=== PATIENT | female | born 1995 | race Caucasian/White ===

== ENCOUNTER 2017-01-25 12:22 | Day surgery (SDC) | payer OTHER ==
[2017-01-22 17:01] VITALS: BMI 21.6
[2017-01-25] VITALS (10 sets, daily range): BP systolic 88–116; BP diastolic 40–73; PULSE 72–84; RESP 14–26; Ht 163.8 cm; Wt 58.0 kg
[~2017-01-25] VITALS: Ht 163.8 cm; Wt 58.0 kg
[2017-01-25 13:17] LABS: ADD SCAN DIFF NO
[2017-01-25 13:21] LABS: BASOPHILS % 0.5 % (0.0-2.0); EOSINOPHILS # 0.1 10^3/ul (0.0-0.5); EOSINOPHILS % 0.9 % (0.0-7.0); HEMATOCRIT 37.1 % (37.0-47.0); HEMOGLOBIN 12.6 g/dl (12.0-16.0); LYMPHOCYTES # 2.1 10^3/ul (0.8-2.9); LYMPHOCYTES % 33.2 % (15.0-51.0); MEAN CORPUSCULAR HEMOGLOBIN 29.5 pg (29.0-33.0); MEAN CORPUSCULAR VOLUME 86.9 fl (82.0-101.0); MEAN PLATELET VOLUME 9.7 fl (7.4-10.4); MONOCYTE # 0.6 10^3/ul (0.3-0.9); MONOCYTES % 9.3 % (0.0-11.0); NEUTROPHIL # 3.6 10^3/ul (1.6-7.5); NEUTROPHILS % 55.5 % (39.0-77.0); PLATELET COUNT 222 10^3/UL (140-415); RED BLOOD COUNT 4.27 10^6/ul (4.20-5.40); RED CELL DISTRIBUTION WIDTH 12.6 % (11.5-14.5); WHITE BLOOD COUNT 6.5 10^3/ul (4.8-10.8)
[2017-01-25 13:30] LABS: INR 1.02; PARTIAL THROMBOPLASTIN TIME 29.1 Sec (25.0-35.0); PROTIME 13.4 Sec (12.2-14.2)
[2017-01-25 13:31] LABS: POTASSIUM 3.5 mmol/L (3.5-5.1)
[2017-01-25 13:33] LABS: CREATININE 0.51 mg/dl (0.44-1.00)
[2017-01-25 13:34] LABS: CALCIUM 9.8 mg/dl (8.4-10.2)
[2017-01-25] MEDS ORDERED: SOD CHLORIDE 0.9% 1,000 ML IV SCH (14:30)
[2017-01-25] MEDS ORDERED: CEFAZOLIN 2 GM/50 ML (PMX) 50 ML IVPB SCH (14:30)
[2017-01-25] MEDS ORDERED: BUPIVACAINE 0.25% (MPF) 10 ML 10 ML VIAL ONE (15:20)
[2017-01-25] MEDS ORDERED: METOCLOPRAMIDE 10 MG INJ IV PRN (15:30)
[2017-01-25] MEDS ORDERED: ONDANSETRON 4 MG INJ IV PRN (15:30)
[2017-01-25] MEDS ORDERED: MIDAZOLAM 1 MG/ML 2 ML INJ IV PRN (15:30)
[2017-01-25] MEDS ORDERED: HYDROmorphONE (0.2 MG/ML) 10ML SYG IV PRN ×2 (15:30)
[2017-01-25] MEDS ORDERED: LABETALOL HCL 20MG INJ IV PRN (15:30)
[2017-01-25] MEDS ORDERED: EPHEDrine SULFATE 50 MG/5 ML SYG IV PRN (15:30)
[2017-01-25] MEDS ORDERED: FENTAnyl 50 MCG/ML VIAL IV PRN ×2 (15:30)
[2017-01-25] MEDS ORDERED: DIPHENHYDRAMINE 50 MG INJ IV PRN (15:30)
[2017-01-25] MEDS ORDERED: hydrALAzine 20 MG INJ IV PRN (15:30)
[2017-01-25] MEDS ORDERED: MEPERIDINE 25 MG INJ IV PRN (15:30)
[2017-01-25] MEDS ORDERED: SUCCINYLCHOLINE CHLORIDE 100 MG/5 ML SYG IV ONE (15:36)
[2017-01-25] MEDS ORDERED: ROCURONIUM 50 MG INJ ONE (15:36)
[2017-01-25] MEDS ORDERED: PROPOFOL 20 ML ONE (15:36)
[2017-01-25] MEDS ORDERED: LIDOCAINE 2% (SDV) 5 ML INJ ONE (15:36)
[2017-01-25] MEDS ORDERED: GLYCOPYRROLATE 0.4 MG INJ ONE (15:36)
[2017-01-25] MEDS ORDERED: ONDANSETRON 4 MG INJ ONE (15:39)
[2017-01-25] MEDS ORDERED: CEFAZOLIN 1 GM INJ ONE (15:39)
[2017-01-25] MEDS ORDERED: METOCLOPRAMIDE 10 MG INJ ONE (15:39)
[2017-01-25] MEDS ORDERED: MEPERIDINE 100 MG INJ ONE (15:48)
[2017-01-25] MEDS ORDERED: HYDROCODONE/APAP (5/325) TAB PO ONE (16:30)
--- NOTE | 2017-01-25 19:25 | OPR ---
DATE OF OPERATION: 01/25/2017 INDICATION: This is a 21-year-old female with hemorrhoids. She requests surgical excision. Risks, alternatives, benefits, and personnel were discussed with the patient. The patient expressed under standing and consents to the operation. PREOPERATIVE DIAGNOSIS: Hemorrhoids. POSTOPERATIVE DIAGNOSIS: Hemorrhoids. OPERATION PERFORMED: 1. Internal, external complex hemorrhoidectomy x2. 2. Rigid proctoscopy. SURGEON: Orville Conde MD SPECIMEN: Left lateral and right posterior hemorrhoids. COMPLICATIONS: None. ANESTHESIA: General. PROCEDURE: The patient was taken to the OR and prepped and draped in usual sterile fashion. Surgic al timeout was performed. IV antibiotics were given. Attention was paid to the hemorrhoids. The l eft lateral internal hemorrhoidal artery was suture ligated with [id number] 3-0 Vicryl suture. The internal and external hemorrhoidal complex was excised with 15 blade and handheld LigaSure. Th e surgical site was hemostatic. This area was partially closed with a running 3-0 Vicryl. Attentio n was then paid to the right posterior column. This was addressed in a similar manner with a figure -of-eight 3-0 Vicryl suture ligature around the internal hemorrhoidal artery. The internal and exte rnal hemorrhoidal complex was excised with the 15 blade and handheld LigaSure. There was good hemos tasis. The incision was partially closed with running 3-0 Vicryl. Local anesthesia was injected. Dry dressings were applied. Dictated By: ORVILLE BLACKWOOD/TOYA Conf#: [id number] DID#: [id number]
== END 2017-01-25 17:52 | disposition home or self-care (01) ==
LOC: SDS 12:22
PROVIDERS: ATTEND Surgery
DX: K64.8 Other hemorrhoids (principal); K64.4 Residual hemorrhoidal skin tags
CPT/HCPCS: 46260; 80048; 84703; 85025; 85610; 85730; 88302; J0330; J0690; J2175; J2405; J2765; Z7512; Z7610

== ENCOUNTER 2017-02-01 18:10 | Inpatient (IN) | payer OTHER ==
[~2017-02-01] VITALS: Ht 165.1 cm; Wt 56.8 kg
[2017-02-01 18:47] VITALS: BP 122/64; RESP 16
[2017-02-01 19:21] VITALS: BP 117/75; RESP 18
[2017-02-01 20:23] VITALS: Ht 165.1 cm; Wt 56.8 kg
[2017-02-01 22:11] LABS: ADD SCAN DIFF NO
[2017-02-01 22:12] LABS: BASOPHILS % 0.3 % (0.0-2.0); EOSINOPHILS % 0.2 % (0.0-7.0); HEMATOCRIT 38.6 % (37.0-47.0); LYMPHOCYTES # 1.9 10^3/ul (0.8-2.9); LYMPHOCYTES % 16.4 % (15.0-51.0); MEAN CORPUSCULAR HEMOGLOBIN 28.9 pg (29.0-33.0); MEAN CORPUSCULAR HGB CONC 33.7 g/dl (32.0-37.0); MEAN CORPUSCULAR VOLUME 85.8 fl (82.0-101.0); MEAN PLATELET VOLUME 8.9 fl (7.4-10.4); MONOCYTE # 1.3 10^3/ul (0.3-0.9); MONOCYTES % 11.2 % (0.0-11.0); NEUTROPHIL # 8.1 10^3/ul (1.6-7.5); NEUTROPHILS % 70.5 % (39.0-77.0); PLATELET COUNT 213 10^3/UL (140-415); RED CELL DISTRIBUTION WIDTH 13.1 % (11.5-14.5); WHITE BLOOD COUNT 11.5 10^3/ul (4.8-10.8)
[2017-02-01 22:28] LABS: ALBUMIN 4.3 g/dl (3.3-4.9); ALBUMIN/GLOBULIN RATIO 1.26; BILIRUBIN,INDIRECT 0.7 mg/dl (0-1.1); BILIRUBIN,TOTAL 0.7 mg/dl (0.2-1.3); CALCIUM 9.5 mg/dl (8.4-10.2); CREATININE 0.46 mg/dl (0.44-1.00); POTASSIUM 3.5 mmol/L (3.5-5.1); TOTAL PROTEIN 7.7 g/dl (6.1-8.1)
[2017-02-01] MEDS: LACTATED RINGER'S 1,000 ML IV SCH (22:36)
[2017-02-01] MEDS: morphine 2 MG INJ IV PRN (22:36)
[2017-02-01] MEDS: CEFAZOLIN 2 GM/50 ML (PMX) 50 ML IVPB SCH (22:36)
--- NOTE | 2017-02-01 23:10 | CONS ---
DATE OF ADMISSION: 02/01/2017 DATE OF CONSULTATION: 02/01/2017 HISTORY OF PRESENT ILLNESS: This is a 21-year-old female who had hemorrhoidectomy approximately a w lower [place] ago. She presented to an outside ER with lower rectal bleed approximately 6 days after surgery. She was given blood products and corrected for any coagulopathies as she was having heavy menstrua l periods. She was transferred to the [facility] stable. General surgery was consulted for evaluation and management. PAST MEDICAL HISTORY: None. PAST SURGICAL HISTORY: Recent hemorrhoidectomy. ALLERGIES: NO KNOWN DRUG ALLERGIES. SOCIAL HISTORY: Lives with family. Denies any smoking. PHYSICAL EXAMINATION: VITAL SIGNS: Temperature is 98.0, pulse is 86, respiratory rate is 18, blood pressure is 117/75, pu lse ox 98%. GENERAL: A well-nourished female, in no acute distress. LUNGS: Clear to auscultation. CARDIOVASCULAR: Regular rate and rhythm. ABDOMEN: Soft. RECTUM: Exam with foster winder nurse. Packing placed. No evidence of active bleeding. ASSESSMENT AND PLAN: This is a 21-year-old female who had some rectal bleeding with packing after h emorrhoid surgery. Unusual presentation after almost a week out; however, patient has started her m enstrual period and may have been partially coagulopathic. She had her blood and blood products giv en at an outside hospital and currently seems stable. We will monitor for active gastrointestinal b leeding for 1 to 2 days after removal of packing. We will continue to follow. Dictated By: BRITANY DOUGHERTY MD SB/NTS Conf#: [id number] DID#: [id number] CC: VIOLETA SIMMS MD;*EndCC*
[2017-02-01] MEDS: HYDROCODONE/APAP (5/325) TAB PO PRN (23:43)
[2017-02-02] MEDS: morphine 2 MG INJ IV PRN ×5 (00:34→22:15)
[2017-02-02] MEDS: HYDROCODONE/APAP (5/325) TAB PO PRN ×2 (04:08→10:48)
[2017-02-02 05:40] LABS: ADD SCAN DIFF NO
[2017-02-02 05:43] LABS: BASOPHILS % 0.3 % (0.0-2.0); EOSINOPHILS # 0.1 10^3/ul (0.0-0.5); EOSINOPHILS % 1.2 % (0.0-7.0); HEMATOCRIT 33.3 % (37.0-47.0); HEMOGLOBIN 11.6 g/dl (12.0-16.0); LYMPHOCYTES # 2.2 10^3/ul (0.8-2.9); LYMPHOCYTES % 22.1 % (15.0-51.0); MEAN CORPUSCULAR HEMOGLOBIN 30.1 pg (29.0-33.0); MEAN CORPUSCULAR HGB CONC 34.8 g/dl (32.0-37.0); MEAN CORPUSCULAR VOLUME 86.3 fl (82.0-101.0); MEAN PLATELET VOLUME 9.1 fl (7.4-10.4); MONOCYTE # 1.3 10^3/ul (0.3-0.9); MONOCYTES % 12.7 % (0.0-11.0); NEUTROPHIL # 6.3 10^3/ul (1.6-7.5); NEUTROPHILS % 62.6 % (39.0-77.0); PLATELET COUNT 211 10^3/UL (140-415); RED BLOOD COUNT 3.86 10^6/ul (4.20-5.40); WHITE BLOOD COUNT 10.1 10^3/ul (4.8-10.8)
[2017-02-02] MEDS: CEFAZOLIN 2 GM/50 ML (PMX) 50 ML IVPB SCH ×2 (05:53→13:26)
[2017-02-02 06:07] LABS: ALBUMIN 3.8 g/dl (3.3-4.9)
[2017-02-02 06:08] LABS: POTASSIUM 3.9 mmol/L (3.5-5.1)
[2017-02-02 06:10] LABS: BILIRUBIN,INDIRECT 0.6 mg/dl (0-1.1); BILIRUBIN,TOTAL 0.6 mg/dl (0.2-1.3); CREATININE 0.5 mg/dl (0.44-1.00)
[2017-02-02 06:11] LABS: ALBUMIN/GLOBULIN RATIO 1.18; CALCIUM 9.3 mg/dl (8.4-10.2)
[2017-02-02] MEDS: LACTATED RINGER'S 1,000 ML IV SCH ×4 (07:21→22:17)
[2017-02-02 07:49] VITALS: BP 125/68; RESP 20
[2017-02-02] MEDS ORDERED: HYDROmorphONE 1 MG/ML SYG IV STA (12:53)
--- NOTE | 2017-02-02 13:25 | PN ---
Date/Time of Note Date/Time of Note DATE: 02/02/17 TIME: 13:24 Assessment/Plan VTE Prophylaxis VTE Prophylaxis Intervention: SCD's Lines/Catheters IV Catheter Type (from [facility]): Saline Lock Assessment/Plan Chief Complaint/Hosp Course s/p hemorrhoidectomy with some rectal bleeding treated at OSH and transferred with packing Problems: Assessment/Plan packing removed, remove ortega will continue to follow Subjective 24 Hr Interval Summary Free Text/Dictation pack in place no other issues Exam/Review of Systems Vital Signs Vitals Vital Signs Date Time Temp Pulse Resp B/P Pulse Ox O2 Delivery O2 Flow Rate FiO2 02/02/17 07:49 98.6 70 20 125/68 98 Intake and Output 02/01/17 02/01/17 02/02/17 15:00 23:00 07:00 Intake Total 1650 ml Output Total 1600 ml Balance 50 ml Exam packing removed, some old blood no evidence of new blood Results Result Diagram: 02/02/17 0455 02/02/17 0455 Results 24 hrs Laboratory Tests Test 02/01/17 22:00 02/02/17 04:55 White Blood Count 11.5 #H 10.1 Red Blood Count 4.50 3.86 L Hemoglobin 13.0 11.6 L Hematocrit 38.6 33.3 L Mean Corpuscular Volume 85.8 86.3 Mean Corpuscular Hemoglobin 28.9 L 30.1 Mean Corpuscular Hemoglobin Concent 33.7 34.8 Red Cell Distribution Width 13.1 13.0 Platelet Count 213 211 Mean Platelet Volume 8.9 9.1 Neutrophils % 70.5 62.6 Lymphocytes % 16.4 22.1 Monocytes % 11.2 H 12.7 H Eosinophils % 0.2 1.2 Basophils % 0.3 0.3 Nucleated Red Blood Cells % 0.0 0.0 Neutrophils # 8.1 H 6.3 Lymphocytes # 1.9 2.2 Monocytes # 1.3 H 1.3 H Eosinophils # 0.0 0.1 Basophils # 0.0 0.0 Nucleated Red Blood Cells # 0.0 0.0 Sodium Level 137 138 Potassium Level 3.5 3.9 Chloride Level 102 100 Carbon Dioxide Level 25 26 Anion Gap 14 16 Blood Urea Nitrogen 7 7 Creatinine 0.46 0.50 Glucose Level 101 101 Calcium Level 9.5 9.3 Total Bilirubin 0.7 0.6 Direct Bilirubin 0.00 0.00 Indirect Bilirubin 0.7 0.6 Aspartate Amino Transf (AST/SGOT) 29 21 Alanine Aminotransferase (ALT/SGPT) 81 H 68 Alkaline Phosphatase 98 78 Total Protein 7.7 7.0 Albumin 4.3 3.8 Globulin 3.40 H 3.20 Albumin/Globulin Ratio 1.26 1.18 Medications Medications Current Medications Cefazolin Sodium/ Dextrose (Ancef 2 Gm/50 ml (Pmx)) 50 ml @ 100 mls/hr Q8H IVPB Last administered on 02/02/17 05:53; Admin Dose 100 MLS/HR; Start at 21:30; Stop 02/02/17 at 21:29 Morphine Sulfate (morphine) 2 mg Q2H PRN IV PAIN LEVEL 6-10 Last administered on 02/02/17 08:39; Admin Dose 2 MG; Start 02/01/17 at 21:30 Acetaminophen/ Hydrocodone Bitart 1 tab 1 tab Q6H PRN PO PAIN LEVEL 6-10 Last administered on 02/02/17 10:48; Admin Dose 1 TAB; Start 02/01/17 at 21:30 Lactated Ringer's (Lr) 1,000 ml @ 100 mls/hr Q10H IV Last administered on 02/02 10:36; Admin Dose 100 MLS/HR; Start 02/01/17 at 21:21 Rukhsana DOUGHERTY Feb 02, 2017 13:25
--- NOTE | 2017-02-02 17:44 | HP ---
Date/Time of Note Date/Time of Note DATE: 02/02/17 TIME: 17:38 Assessment/Plan Lines/Catheters IV Catheter Type (from [facility]): Saline Lock Assessment/Plan Assessment/Plan - s/p hemorrhoidectomy with some rectal bleeding treated at OSH and transferred with packing - per surgery - packing removed - ortega eleni Alberto. HPI/ROS Admit Date/Time Admit Date/Time Feb 01, 2017 at 18:10 Hx of Present Illness This is a 21-year-old female who had hemorrhoidectomy approximately a week ago. She presented to an outside ER with lower rectal bleed approximately 6 days after surgery. She was given blood products and corrected for any coagulopathies as she was having heavy menstrual periods. She was transferred to the [facility] stable. General surgery was consulted for evaluation and management. ALLERGIES: NO KNOWN DRUG ALLERGIES. . PMH/Family/Social Past Medical History PAST MEDICAL HISTORY: None. PAST SURGICAL HISTORY: Recent hemorrhoidectomy - sp right eye surg x 2 - sp appendectomy ALLERGIES: NO KNOWN DRUG ALLERGIES. SOCIAL HISTORY: Lives with family. Denies any smoking. Social History Alcohol Use: none Smoking Status: Never smoker Drug Use: none Exam/Review of Systems Vital Signs Vitals Vital Signs Date Time Temp Pulse Resp B/P Pulse Ox O2 Delivery O2 Flow Rate FiO2 02/02/17 07:49 98.6 70 20 125/68 98 Intake and Output 02/01/17 02/01/17 02/02/17 15:00 23:00 07:00 Intake Total 1650 ml Output Total 1600 ml Balance 50 ml Exam Constitutional: alert, oriented, well developed Psych: nl mood/affect Head: atraumatic Eyes: EOMI, PERRL, nl sclera ENMT: nl external ears & nose Neck: non-tender Respiratory: clear to auscultation Cardiovascular: nl pulses Gastrointestinal: non-tender, other (s/p hemorrhoidectomy), soft Musculoskeletal: nl extremities to inspection Extremities: normal pulses Neurological: nl mental status, nl speech Skin: nl turgor Lymph: nl lymph nodes Labs Result Diagram: 02/02/17 0455 02/02/17 0455 Medications Medications Current Medications Cefazolin Sodium/ Dextrose (Ancef 2 Gm/50 ml (Pmx)) 50 ml @ 100 mls/hr Q8H IVPB Last administered on 02/02/17 13:26; Admin Dose 100 MLS/HR; Start at 21:30; Stop 02/02/17 at 21:29 Morphine Sulfate (morphine) 2 mg Q2H PRN IV PAIN LEVEL 6-10 Last administered on 02/02/17 08:39; Admin Dose 2 MG; Start 02/01/17 at 21:30 Acetaminophen/ Hydrocodone Bitart 1 tab 1 tab Q6H PRN PO PAIN LEVEL 6-10 Last administered on 02/02/17 10:48; Admin Dose 1 TAB; Start 02/01/17 at 21:30 Lactated Ringer's (Lr) 1,000 ml @ 100 mls/hr Q10H IV Last administered on 02/02 10:36; Admin Dose 100 MLS/HR; Start 02/01/17 at 21:21 LEONA OSCAR Feb 02, 2017 17:44
[2017-02-02 19:24] VITALS: BP 109/59; RESP 16
[2017-02-03] MEDS: morphine 2 MG INJ IV PRN ×3 (04:14→12:21)
[2017-02-03 05:48] LABS: ADD SCAN DIFF NO
[2017-02-03 05:52] LABS: BASOPHIL # 0.1 10^3/ul (0.0-0.1); BASOPHILS % 0.6 % (0.0-2.0); EOSINOPHILS # 0.1 10^3/ul (0.0-0.5); EOSINOPHILS % 1.4 % (0.0-7.0); HEMATOCRIT 33.6 % (37.0-47.0); HEMOGLOBIN 11.5 g/dl (12.0-16.0); LYMPHOCYTES # 1.7 10^3/ul (0.8-2.9); LYMPHOCYTES % 20.4 % (15.0-51.0); MEAN CORPUSCULAR HEMOGLOBIN 29.9 pg (29.0-33.0); MEAN CORPUSCULAR HGB CONC 34.2 g/dl (32.0-37.0); MEAN CORPUSCULAR VOLUME 87.3 fl (82.0-101.0); MEAN PLATELET VOLUME 9.2 fl (7.4-10.4); MONOCYTE # 1.1 10^3/ul (0.3-0.9); NEUTROPHIL # 5.4 10^3/ul (1.6-7.5); NEUTROPHILS % 63.3 % (39.0-77.0); PLATELET COUNT 222 10^3/UL (140-415); RED BLOOD COUNT 3.85 10^6/ul (4.20-5.40); RED CELL DISTRIBUTION WIDTH 12.8 % (11.5-14.5); WHITE BLOOD COUNT 8.5 10^3/ul (4.8-10.8)
[2017-02-03 06:06] LABS: CALCIUM 8.9 mg/dl (8.4-10.2); CREATININE 0.45 mg/dl (0.44-1.00); POTASSIUM 3.7 mmol/L (3.5-5.1)
--- NOTE | 2017-02-03 08:23 | PN ---
Date/Time of Note Date/Time of Note DATE: 02/03/17 TIME: 08:23 Assessment/Plan VTE Prophylaxis VTE Prophylaxis Intervention: SCD's Lines/Catheters IV Catheter Type (from Nrs): Peripheral IV Urinary Cath still in place: No Assessment/Plan Chief Complaint/Hosp Course s/p hemorrhoidectomy with some rectal bleeding treated at OSH and transferred with packing Problems: Assessment/Plan doing well hgb stable dc home today f/u in 2 weeks Subjective 24 Hr Interval Summary Free Text/Dictation doing well, hgb stable Exam/Review of Systems Vital Signs Vitals Vital Signs Date Time Temp Pulse Resp B/P Pulse Ox O2 Delivery O2 Flow Rate FiO2 02/02/17 19:24 98.3 85 16 109/59 97 Intake and Output 02/02/17 02/02/17 02/03/17 15:00 23:00 07:00 Intake Total 400 ml 2570 ml 1580 ml Output Total 2200 ml 1200 ml Balance 400 ml 370 ml 380 ml Exam deferred exam Results Result Diagram: 02/03/17 0512 02/03/17 0512 Results 24 hrs Laboratory Tests Test 02/03/17 05:12 White Blood Count 8.5 Red Blood Count 3.85 L Hemoglobin 11.5 L Hematocrit 33.6 L Mean Corpuscular Volume 87.3 Mean Corpuscular Hemoglobin 29.9 Mean Corpuscular Hemoglobin Concent 34.2 Red Cell Distribution Width 12.8 Platelet Count 222 Mean Platelet Volume 9.2 Neutrophils % 63.3 Lymphocytes % 20.4 Monocytes % 13.0 H Eosinophils % 1.4 Basophils % 0.6 Nucleated Red Blood Cells % 0.0 Neutrophils # 5.4 Lymphocytes # 1.7 Monocytes # 1.1 H Eosinophils # 0.1 Basophils # 0.1 Nucleated Red Blood Cells # 0.0 Sodium Level 136 Potassium Level 3.7 Chloride Level 103 Carbon Dioxide Level 27 Anion Gap 10 # Blood Urea Nitrogen 9 Creatinine 0.45 Glucose Level 103 Calcium Level 8.9 Medications Medications Current Medications Morphine Sulfate (morphine) 2 mg Q2H PRN IV PAIN LEVEL 6-10 Last administered on 02/03/17 06:31; Admin Dose 2 MG; Start 02/01/17 at 21:30 Acetaminophen/ Hydrocodone Bitart 1 tab 1 tab Q6H PRN PO PAIN LEVEL 6-10 Last administered on 02/02/17 10:48; Admin Dose 1 TAB; Start 02/01/17 at 21:30 Lactated Ringer's (Lr) 1,000 ml @ 100 mls/hr Q10H IV Last administered on 02/02 22:17; Admin Dose 100 MLS/HR; Start 02/01/17 at 21:21 Rukhsana DOUGHERTY Feb 03, 2017 08:23
[2017-02-03 08:55] VITALS: BP 125/59; RESP 20
[2017-02-03 09:00] VITALS: BP 114/56; RESP 20
[2017-02-03] MEDS: LACTATED RINGER'S 1,000 ML IV SCH (13:21)
--- NOTE | 2017-02-03 14:26 | PDOCDIS ---
Discharge Instructions CONDITION Patient Condition: Stable HOME CARE INSTRUCTIONS: Special Diet: REGULAR DIET ACTIVITY: Activity Restrictions: Slowly Increase Activity Rest between Activity Avoid heavy lifting Do not operate Machinery Do not operate Power Tool Avoid Heavy Housework FOLLOW UP/APPOINTMENTS Appointments FU with Primary MD X 1 WEEK FU with Surgery MD X 1 WEEK Call 911 or go to the nearest hospital if symptoms get worse. LEONA OSCAR Feb 03, 2017 14:26
[2017-02-03] MEDS ORDERED: DOCU-144 PO (14:27)
[2017-02-03] MEDS ORDERED: PANT40TA3 PO (14:27)
[2017-02-03] MEDS ORDERED: HYDR-906 PO (14:27)
[2017-02-03] MEDS: HYDROCODONE/APAP (5/325) TAB PO PRN (16:17)
== END 2017-02-03 16:15 | disposition home or self-care (01) | DRG 920 ==
LOC: MS2 18:10
PROVIDERS: ADMIT Internal Medicine; ATTEND Surgery
DX: N99.820 Postprocedural hemorrhage of a genitourinary system organ or structure following a genitourinary system procedure (principal); K92.2 Gastrointestinal hemorrhage, unspecified; Z98.890 Other specified postprocedural states
CPT/HCPCS: 80048; 80053; 85025; J0690; J1170; J2270; J7120

== ENCOUNTER 2017-07-12 08:50 | Day surgery (SDC) | payer OTHER ==
[2017-07-09 17:15] VITALS: BMI 20.8
[~2017-07-12] VITALS: Ht 162.6 cm; Wt 53.6 kg
[2017-07-12] VITALS (13 sets, daily range): BP systolic 105–127; BP diastolic 55–86; PULSE 62–87; RESP 16–22; Ht 162.6 cm; Wt 53.6 kg
[~2017-07-12 08:50] MED LIST: DESFLURANE 15 MIN ONE; DOCU-144 PO; HYDR-906 PO; LIDOCAINE 2% (SDV) 5 ML INJ ONE; PANT40TA3 PO
[2017-07-12] MEDS ORDERED: CEFAZOLIN 2 GM/50 ML (PMX) 50 ML IVPB ONE (10:00)
[2017-07-12] MEDS ORDERED: SOD CHLORIDE 0.9% 1,000 ML IV SCH (10:00)
[2017-07-12] MEDS ORDERED: BUPIVACAINE 0.25% (MPF) 30 ML INJ ONE (10:49)
[2017-07-12] MEDS ORDERED: PROPOFOL 20 ML ONE (10:57)
[2017-07-12] MEDS ORDERED: FENTAnyl 50 MCG/ML VIAL ONE ×2 (10:57→11:10)
[2017-07-12] MEDS ORDERED: ROCURONIUM 50 MG INJ ONE (10:57)
[2017-07-12] MEDS ORDERED: METOCLOPRAMIDE 10 MG INJ IV PRN (11:00)
[2017-07-12] MEDS ORDERED: ONDANSETRON 4 MG INJ IV PRN (11:00)
[2017-07-12] MEDS ORDERED: HYDROmorphONE (0.2 MG/ML) 10ML SYG IV PRN ×3 (11:00)
[2017-07-12] MEDS ORDERED: MEPERIDINE 25 MG INJ IV PRN (11:00)
[2017-07-12] MEDS ORDERED: OXYCODONE/ACETAMINOPHEN (5/325) TAB PO PRN ×2 (11:00)
[2017-07-12] MEDS ORDERED: EPHEDrine SULFATE 50 MG/5 ML SYG IV PRN (11:00)
[2017-07-12] MEDS ORDERED: hydrALAzine 20 MG INJ IV PRN (11:00)
[2017-07-12] MEDS ORDERED: FENTAnyl 50 MCG/ML VIAL IV PRN ×3 (11:00)
[2017-07-12] MEDS ORDERED: LABETALOL HCL 20MG INJ IV PRN (11:00)
[2017-07-12] MEDS ORDERED: DIPHENHYDRAMINE 50 MG INJ IV PRN (11:00)
[2017-07-12] MEDS ORDERED: KETOROLAC 30 MG INJ IV PRN (11:00)
[2017-07-12] MEDS ORDERED: CEFAZOLIN 1 GM INJ ONE (11:03)
[2017-07-12] MEDS ORDERED: DEXAMETHASONE 4 MG/ML 1 ML INJ ONE (11:22)
[2017-07-12] MEDS ORDERED: ONDANSETRON 4 MG INJ ONE (11:23)
[2017-07-12] MEDS ORDERED: GLYCOPYRROLATE 0.4 MG INJ ONE (11:35)
[2017-07-12] MEDS ORDERED: NEOSTIGMINE 3 MG/3 ML SYRINGE ONE (11:35)
--- NOTE | 2017-07-12 11:43 | OPR ---
Date/Time of Note Date/Time of Note DATE: 07/12/17 TIME: 11:40 Operative Report Procedure Date: Jul 12, 2017 Preoperative Diagnosis recurrent hemorrhoids Postoperative Diagnosis same Operation Performed 1. internal and external hemorrhoidectomy multiple procedure 2. rigid sigmoidoscopy 3. therapeutic injection of subcutaneous marcaine cpt code [id number] Surgeon see signature line Anesthesia Type: general Estimated Blood Loss: 0 - 10 ml's Specimens internal and external hemorrhoid left lateral internal and external hemorrhoids right posterior Grafts/Implants: none Complications: no Indications This is a 21-year-old female with recurrent hemorrhoids. She requests surgical excision of her hemorrhoid. Risks alternatives benefits and personnel were discussed the patient. Potential complications including but not limited to bleeding infection pain anal pain possibly incontinence and possibly were discussed the patient. Patient expressed understanding and consents to the operation. Procedure Description Patient taken to the OR and prepped and draped in usual sterile fashion. Surgical timeout was performed. IV antibiotics given. Initial rigid proctoscopy is performed there is no evidence of any masses or lesions. Attention was then paid to the left lateral hemorrhoid. Excisional hemorrhoidectomy was performed using a 15 blade and had a LigaSure. There is good hemostasis. Attention was then paid to the right posterior hemorrhoid. This is excised using a 15 blade and had a LigaSure. Hemostasis was established. There appears to contains Marcaine was injected throughout the anal mucosa. Dry dressings were applied. Rukhsana DOUGHERTY Jul 12, 2017 11:43
[2017-07-12] MEDS ORDERED: HYDROCODONE/APAP (5/325) TAB PO ONE (12:00)
== END 2017-07-12 11:40 | disposition home or self-care (01) ==
LOC: SDS 08:50
PROVIDERS: ATTEND Surgery
DX: K64.8 Other hemorrhoids (principal); K64.4 Residual hemorrhoidal skin tags
CPT/HCPCS: 46260; 84703; 88304; J0690; J1100; J2405; J2710; J3010; Z7512; Z7610